=== PATIENT | male | born 1965 | race Two or more races ===

== ENCOUNTER 2016-08-01 22:49 | Inpatient (IN) | payer OTHER ==
[~2016-08-01] VITALS: Ht 172.7 cm; Wt 99.6 kg
[2016-08-01 23:27] LABS: Basophils # (auto) 0 uL; Basophils % (auto) 0.3 % (0.0-2.0); Eosinophils # (auto) 0.1 uL; Eosinophils % (auto) 1.5 % (0.0-7.0); Hematocrit 39.6 % (41.0-53.0); Hemoglobin 13.2 g/dL (13.5-17.5); Lymphocytes # (auto) 1.2 uL; Lymphocytes % (auto) 18.6 % (10.0-50.0); Mean Corpuscular Hemoglobin 30.5 pg (28.0-32.0); Mean Corpuscular Hgb Conc. 33.4 g/dL (32.0-36.0); Mean Corpuscular Volume 91.2 fL (80.0-100.0); Mean Platelet Volume 7.6 fL (7.4-10.4); Monocytes # (auto) 0.7 uL; Monocytes % (auto) 10.9 % (0.0-12.0); Neutrophils # (auto) 4.6 uL; Neutrophils % (auto) 68.7 % (37.0-80.0); Platelet Count (auto) 246 10^3/uL (140-450); Red Cell Distribution Width 13.9 % (11.6-16.0); White Blood Cell 6.6 10^3/uL (4.4-10.8)
[2016-08-01 23:41] LABS: Potassium 3.3 mmol/L (3.5-5.1)
[2016-08-02] LABS: Albumin 3.5 g/dL (3.4-5.0); Bilirubin, Total 0.5 mg/dL (0.2-1.0); Calcium 8.1 mg/dL (8.5-10.1); Total Protein 6.8 g/dL (6.4-8.2)
[2016-08-02] MEDS ORDERED: MORPHINE SULFATE 4 MG/ML SYRG IV ONE (02:45)
[2016-08-02] MEDS ORDERED: POTASSIUM CHL 20 Meq TABLET PO ONE (02:45)
[2016-08-02] MEDS ORDERED: ASPirin 81 mg TAB PO ONE (02:45)
[2016-08-02] MEDS ORDERED: ONDANSETRON HCL 4 MG/2 ML VIAL IV ONE ×2 (02:45→04:45)
[2016-08-02] MEDS ORDERED: NITROGLYCERIN 2% OINT 1GM PKG TD ONE (04:30)
[2016-08-02] MEDS ORDERED: HYDROmorphone HCL 2 MG/ML VL IV ONE (04:30)
[2016-08-02] MEDS ORDERED: ONDANSETRON HCL 4 MG/2 ML VIAL ONE ×2 (04:38→16:57)
[2016-08-02] MEDS ORDERED: SODIUM CHLORIDE 0.9% 1,000 ML IV SCH (06:11)
[2016-08-02] MEDS ORDERED: LACTULOSE 20Gm/30ML SOLN PO PRN (06:15)
[2016-08-02] MEDS ORDERED: PANTOPRAZOLE SODIUM 40 MG/10 ML VIAL IV ONE (06:15)
[2016-08-02] MEDS ORDERED: NITROGLYCERIN 0.4 MG SL TAB SL PRN (06:15)
[2016-08-02] MEDS ORDERED: CLOPIDOGREL 300 MG TAB PO ONE (06:30)
[2016-08-02] MEDS ORDERED: METOPROLOL TARTRATE 25 MG TAB PO SCH (10:00)
[2016-08-02] MEDS ORDERED: ENOXAPARIN SOD 30 MG/0.3 ML SYRINGE SC SCH (10:00)
[2016-08-02] MEDS ORDERED: ENALAPRIL MALEATE 10 MG TAB PO SCH (10:00)
[2016-08-02] MEDS ORDERED: NITROGLYCERIN 0.2MG/HR TOPICAL PATCH TD SCH (10:00)
[2016-08-02] MEDS: ENOXAPARIN SOD 40 MG/0.4 ML SYRINGE SC SCH (10:29)
[2016-08-02] MEDS: ASPirin 81 mg TAB PO SCH (10:30)
[2016-08-02] MEDS: MORPHINE SULF INJ 2 MG/ML SYRINGE 1ML IV PRN ×2 (10:47→13:11)
[2016-08-02 10:48] VITALS: BP 141/71
[2016-08-02] MEDS ORDERED: IOHEXOL 350 MG/ML 100ML IJ ONE ×2 (12:01→15:07)
[2016-08-02 13:00] VITALS: BP 118/54
[2016-08-02] MEDS ORDERED: LEVOFLOXACIN 500MG 100 ML IV ONE (16:15)
[2016-08-02 16:53] VITALS: BP 107/58
[2016-08-02] MEDS ORDERED: ACETAMINOPHEN 325 MG TAB PO ONE (16:56)
[2016-08-02] MEDS ORDERED: ACETAMINOPHEN 325 MG TAB PO PRN (17:15)
[2016-08-02 21:48] VITALS: BP 105/55
[2016-08-02] MEDS: ATORVASTATIN 20 MG TAB PO SCH (21:59)
[2016-08-02] MEDS: DOXYCYCLINE 100 MG TAB PO SCH (22:00)
[2016-08-02] MEDS ORDERED: HYDRX10T PO (22:42)
[2016-08-02] MEDS ORDERED: SUCR1SUS8 PO (22:43)
[2016-08-03] MEDS: HYDROcodone-ACET 5/325MG TAB PO PRN (02:47)
[2016-08-03 05:31] VITALS: BP 110/53
[2016-08-03] MEDS: SODIUM CHLORIDE 0.9% 1,000 ML IV SCH ×2 (05:44→19:42)
[2016-08-03 06:14] LABS: Basophils # (auto) 0 uL; Basophils % (auto) 0.3 % (0.0-2.0); Eosinophils # (auto) 0.1 uL; Eosinophils % (auto) 1.3 % (0.0-7.0); Hematocrit 38.1 % (41.0-53.0); Hemoglobin 12.6 g/dL (13.5-17.5); Lymphocytes # (auto) 1.4 uL; Lymphocytes % (auto) 22.3 % (10.0-50.0); Mean Corpuscular Hemoglobin 30.8 pg (28.0-32.0); Mean Corpuscular Hgb Conc. 33.1 g/dL (32.0-36.0); Mean Corpuscular Volume 92.8 fL (80.0-100.0); Mean Platelet Volume 8.1 fL (7.4-10.4); Monocytes # (auto) 0.6 uL; Neutrophils # (auto) 4.1 uL; Neutrophils % (auto) 66.1 % (37.0-80.0); Platelet Count (auto) 249 10^3/uL (140-450); White Blood Cell 6.1 10^3/uL (4.4-10.8)
[2016-08-03 06:44] LABS: Albumin 3.1 g/dL (3.4-5.0); BUN/Creatinine Ratio 16.3; Bilirubin, Total 0.9 mg/dL (0.2-1.0); Calcium 8.1 mg/dL (8.5-10.1); Magnesium 2.2 mg/dL (1.6-2.6); Potassium 4.5 mmol/L (3.5-5.1); Total Protein 6.5 g/dL (6.4-8.2)
[2016-08-03 06:51] LABS: B-Type Natriuretic Peptide 17.44 pg/mL (0-100)
[2016-08-03 07:04] LABS: Temperature: 21.6 C (20.0-25.0)
[2016-08-03 08:00] VITALS: BP 124/63
[2016-08-03] MEDS: ONDANSETRON HCL 4 MG/2 ML VIAL IV PRN (08:33)
[2016-08-03] MEDS ORDERED: ADENOSINE 84 MG in GIVE UN-DILUTED 0 ML IV STA (08:45)
[2016-08-03] MEDS: LEVOFLOXACIN 750MG 150 ML IV SCH (11:55)
[2016-08-03] MEDS: ASPirin 81 mg TAB PO SCH (11:55)
[2016-08-03] MEDS: DOXYCYCLINE 100 MG TAB PO SCH ×2 (11:55→21:42)
[2016-08-03] MEDS: ENOXAPARIN SOD 40 MG/0.4 ML SYRINGE SC SCH (11:55)
[2016-08-03] MEDS: MORPHINE SULF INJ 2 MG/ML SYRINGE 1ML IV PRN (12:24)
[2016-08-03 13:40] VITALS: BP 102/60
[2016-08-03 17:00] VITALS: BP 119/72
[2016-08-03] MEDS: hydrOXYzine HCL 10 MG TAB PO PRN (18:52)
[2016-08-03] MEDS: ATORVASTATIN 20 MG TAB PO SCH (21:42)
[2016-08-03 22:00] VITALS: BP 107/59
[2016-08-04 05:25] VITALS: BP 98/62
[2016-08-04 07:00] VITALS: BP 103/50
[2016-08-04] MEDS: ENOXAPARIN SOD 40 MG/0.4 ML SYRINGE SC SCH (10:00)
[2016-08-04] MEDS: ASPirin 81 mg TAB PO SCH (10:00)
[2016-08-04] MEDS: DOXYCYCLINE 100 MG TAB PO SCH ×2 (10:23→21:46)
[2016-08-04] MEDS: ONDANSETRON HCL 4 MG/2 ML VIAL IV PRN ×2 (10:24→17:32)
[2016-08-04] MEDS: LEVOFLOXACIN 750MG 150 ML IV SCH (10:24)
[2016-08-04] MEDS: SODIUM CHLORIDE 0.9% 1,000 ML IV SCH ×2 (10:31→22:11)
[2016-08-04 12:00] VITALS: BP 109/67
[2016-08-04 16:59] VITALS: BP 101/59
[2016-08-04] MEDS: HYDROcodone-ACET 5/325MG TAB PO PRN (17:37)
[2016-08-04] MEDS: BOOST PLUS 8 ounce PO SCH (18:11)
[2016-08-04] MEDS: hydrOXYzine HCL 10 MG TAB PO PRN (21:46)
[2016-08-04] MEDS: ATORVASTATIN 20 MG TAB PO SCH (21:46)
[2016-08-04] MEDS ORDERED: ALUM & MAG HYDROX-SIMETH LIQ(MAALOX) 30 ML PO PRN (22:30)
[2016-08-04 22:39] VITALS: BP 122/62
[2016-08-05] MEDS: HYDROcodone-ACET 5/325MG TAB PO PRN ×3 (01:26→21:38)
[2016-08-05] MEDS: ONDANSETRON HCL 4 MG/2 ML VIAL IV PRN (01:35)
[2016-08-05 05:19] VITALS: BP 106/65
[2016-08-05 06:23] LABS: Basophils # (auto) 0 uL; Basophils % (auto) 0.6 % (0.0-2.0); Eosinophils # (auto) 0.1 uL; Eosinophils % (auto) 3.1 % (0.0-7.0); Hemoglobin 12.5 g/dL (13.5-17.5); Lymphocytes # (auto) 1.5 uL; Lymphocytes % (auto) 33.6 % (10.0-50.0); Mean Corpuscular Hemoglobin 30.4 pg (28.0-32.0); Mean Corpuscular Volume 92.2 fL (80.0-100.0); Mean Platelet Volume 7.8 fL (7.4-10.4); Monocytes # (auto) 0.5 uL; Neutrophils # (auto) 2.4 uL; Neutrophils % (auto) 52.7 % (37.0-80.0); Platelet Count (auto) 261 10^3/uL (140-450); Red Cell Distribution Width 13.5 % (11.6-16.0); White Blood Cell 4.6 10^3/uL (4.4-10.8)
[2016-08-05 06:34] LABS: Albumin 3.1 g/dL (3.4-5.0); BUN/Creatinine Ratio 11.4; Bilirubin, Total 0.5 mg/dL (0.2-1.0); Calcium 8.4 mg/dL (8.5-10.1); Potassium 4.3 mmol/L (3.5-5.1); Total Protein 6.6 g/dL (6.4-8.2)
[2016-08-05] MEDS: BOOST PLUS 8 ounce PO SCH ×3 (08:00→18:00)
[2016-08-05 08:48] VITALS: BP 116/48
[2016-08-05] MEDS: hydrOXYzine HCL 10 MG TAB PO PRN ×2 (09:03→21:38)
[2016-08-05] MEDS: ENOXAPARIN SOD 40 MG/0.4 ML SYRINGE SC SCH (09:42)
[2016-08-05] MEDS: LEVOFLOXACIN 750MG 150 ML IV SCH (09:42)
[2016-08-05] MEDS: ASPirin 81 mg TAB PO SCH (09:42)
[2016-08-05] MEDS: DOXYCYCLINE 100 MG TAB PO SCH ×2 (09:42→21:39)
[2016-08-05] MEDS: SODIUM CHLORIDE 0.9% 1,000 ML IV SCH (11:31)
[2016-08-05 12:35] VITALS: BP 121/74
[2016-08-05] MEDS ORDERED: NITROGLYCERIN 0.2MG/HR TOPICAL PATCH TD ONE (14:30)
[2016-08-05 17:00] VITALS: BP 129/76
[2016-08-05] MEDS: ATORVASTATIN 20 MG TAB PO SCH (21:38)
[2016-08-05] MEDS: DOCUSATE SOD 100 MG CAP PO SCH (21:38)
[2016-08-05 22:00] VITALS: BP 104/55
[2016-08-06] MEDS: SODIUM CHLORIDE 0.9% 1,000 ML IV SCH ×2 (00:54→14:11)
[2016-08-06 05:00] VITALS: BP 111/52
[2016-08-06] MEDS: HYDROcodone-ACET 5/325MG TAB PO PRN ×2 (05:17→11:20)
[2016-08-06] MEDS: hydrOXYzine HCL 10 MG TAB PO PRN ×2 (05:17→11:20)
[2016-08-06] MEDS: BOOST PLUS 8 ounce PO SCH ×2 (08:00→11:54)
[2016-08-06 08:36] VITALS: BP 98/50
[2016-08-06] MEDS: ENOXAPARIN SOD 40 MG/0.4 ML SYRINGE SC SCH (09:48)
[2016-08-06] MEDS: DOXYCYCLINE 100 MG TAB PO SCH (09:48)
[2016-08-06] MEDS: ASPirin 81 mg TAB PO SCH (09:49)
[2016-08-06] MEDS: LEVOFLOXACIN 750MG 150 ML IV SCH (09:49)
[2016-08-06] MEDS: DOCUSATE SOD 100 MG CAP PO SCH (09:57)
[2016-08-06] MEDS ORDERED: NITROGLYCERIN 0.2MG/HR TOPICAL PATCH TD SCH (10:00)
[2016-08-06] MEDS ORDERED: SACC250C PO (12:55)
[2016-08-06] MEDS ORDERED: LEVO750T64 PO (12:55)
[2016-08-06 14:13] VITALS: BP 65/42
[2016-08-06 14:56] VITALS: BP 108/50
== END 2016-08-06 15:30 | disposition home or self-care (01) | DRG 280 ==
LOC: ER 22:53 → TELE 22:54 → TELE-WESTW 08-02 11:31
PROVIDERS: ADMIT Family Medicine; ATTEND Internal Medicine
PROC: 4A12XM4 Monitoring of Cardiac Stress, External Approach (ICD-10-PCS; principal; 2016-08-03)
DX: I21.4 Non-ST elevation (NSTEMI) myocardial infarction (principal); J18.9 Pneumonia, unspecified organism; J98.11 Atelectasis; D63.8 Anemia in other chronic diseases classified elsewhere; K21.9 Gastro-esophageal reflux disease without esophagitis; E78.5 Hyperlipidemia, unspecified; E87.6 Hypokalemia; F43.10 Post-traumatic stress disorder, unspecified
CPT/HCPCS: 36415; 71010; 71275; 78452; 80053; 80061; 82270; 82550; 83036; 83605; 83735; 83880; 84443; 84484; 85025; 85379; 85652; 87070; 87205; 93005; 93017; 93306; 93970; 96374; 96375; 96376; C9113; J0153; J1956; J2405

== ENCOUNTER 2018-03-14 13:02 | Emergency (ER) | payer OTHER ==
[~2018-03-14] VITALS: Ht 167.6 cm; Wt 97.5 kg
[~2018-03-14 13:02] MED LIST: HYDRX10T PO; LEVO750T64 PO; SACC250C PO; SUCR1SUS8 PO
[2018-03-14 13:59] VITALS: BP 135/62
[2018-03-17 10:57] LABS: Hepatitis B Surface Antibody Positive
[2018-03-17 14:10] LABS: Hepatitis B Surface Antigen Negative (Negative)
== END 2018-03-14 14:44 | disposition home or self-care (01) ==
LOC: ER 13:02
DX: Z77.21 Contact with and (suspected) exposure to potentially hazardous body fluids (principal); Z79.899 Other long term (current) drug therapy
CPT/HCPCS: 36415; 86703; 86706; 86803; 87340

== ENCOUNTER → 2018-06-04 | Outpatient (CLI) | payer OTHER ==
[2018-06-05 09:03] LABS: Hepatitis B Surface Antibody Positive
[2018-06-05 10:16] LABS: Hepatitis B Surface Antigen Negative (Negative)
== END | disposition home or self-care (01) ==
LOC: LAB 12:50
PROVIDERS: ATTEND Nurse Practitioner
DX: Z77.21 Contact with and (suspected) exposure to potentially hazardous body fluids (principal)
CPT/HCPCS: 36415; 86703; 86706; 86803; 87340

== ENCOUNTER 2019-01-01 20:39 | Emergency (ER) | payer OTHER ==
[~2019-01-01] VITALS: Ht 165.1 cm; Wt 95.3 kg
[2019-01-01 21:00] VITALS: BP 149/79
[2019-01-02] MEDS ORDERED: TRIAMCINOLONE 40MG/ML 1ML VIAL IM ONE (02:00)
[2019-01-02] MEDS ORDERED: LIDOCAINE W/ EPINEPHRINE 2% INJ 20ML VIAL IJ ONE (02:00)
[2019-01-02] MEDS ORDERED: DexAMETHasone SOD PHOS 10MG/1ML VIAL INJ IM ONE (02:30)
[2019-01-02] MEDS ORDERED: BACLOFEN 10 MG TAB PO ONE (02:30)
[2019-01-03] MEDS ORDERED: TRIAMCINOLONE 40MG/ML 1ML VIAL IX ONE (22:15)
== END 2019-01-02 02:56 | disposition home or self-care (01) ==
LOC: ER 20:39
DX: S16.1XXA Strain of muscle, fascia and tendon at neck level, initial encounter (principal); S56.416A Strain of extensor muscle, fascia and tendon of left ring finger at forearm level, initial encounter; S50.12XA Contusion of left forearm, initial encounter; Z79.899 Other long term (current) drug therapy; Y08.89XA Assault by other specified means, initial encounter; Y93.89 Activity, other specified; Y99.0 Civilian activity done for income or pay; Y92.89 Other specified places as the place of occurrence of the external cause
CPT/HCPCS: 20552; 29130; 72125; 73090; 73130; 96372; 99284; J1100; J3301